=== PATIENT | female | born 2000 | race African-American/Black ===

== ENCOUNTER 2024-05-30 11:05 | Emergency (ER) | payer MEDICAID ==
[~2024-05-30] VITALS: Ht 165.1 cm; Wt 57.0 kg
[2024-05-30 11:08] VITALS: O2SAT 100
[2024-05-30 11:24] VITALS: BP 127/89; PULSE 96; RESP 14; TEMP 36.3; O2SAT 100
[2024-05-30 13:52] VITALS: TEMP 97.3
[2024-05-30] MEDS: ACETAMINOPHEN 325MG TABLET PO ONE (13:52)
== END 2024-05-30 14:08 | disposition left against medical advice (07) ==
LOC: ER 11:05
DX: R51.9 Headache, unspecified (principal)
CPT/HCPCS: 81025; 99282

== ENCOUNTER 2024-06-19 17:02 | Emergency (ER) | payer MEDICAID ==
[~2024-06-19] VITALS: Ht 165.1 cm; Wt 51.7 kg
[2024-06-19 17:38] VITALS: BP 139/105; RESP 16; TEMP 36.8; O2SAT 100
[2024-06-19 17:40] VITALS: PULSE 102; O2SAT 99
== END 2024-06-19 18:27 | disposition left against medical advice (07) ==
LOC: ER 17:13
DX: Z53.21 Procedure and treatment not carried out due to patient leaving prior to being seen by health care provider (principal)